=== PATIENT | male | born 1995 | race Two or more races ===

== ENCOUNTER 2017-09-16 01:32 | Emergency (ER) | payer SELFPAY ==
[~2017-09-16] VITALS: Ht 170.2 cm; Wt 55.0 kg
[2017-09-16 02:54] VITALS: BP 114/74
== END 2017-09-16 05:22 | disposition home or self-care (01) ==
LOC: ED 05:05
DX: F10.120 Alcohol abuse with intoxication, uncomplicated (principal)
CPT/HCPCS: 36415; 80307; 99283